=== PATIENT | male | born 1970 | race Caucasian/White ===

== ENCOUNTER 2017-01-10 10:55 | Inpatient (IN) | payer MEDICAID ==
[~2017-01-10] VITALS: Ht 182.9 cm; Wt 85.7 kg
[2017-01-10 12:20] LABS: BASOPHILS 0.2 % (0-2); EOSINOPHILS 0.2 % (0-7); HEMATOCRIT 42.9 % (42.0-54.0); HEMOGLOBIN 15.6 g/dL (13.5-17.5); IMMATURE GRANULOCYTES 0.2 % (0-5); LYMPHOCYTES 9.3 % (15-50); MCH 32.7 pg (26.0-34.0); MCHC 36.4 g/dL (31.0-37.0); MCV 89.9 fL (80.0-100.0); MEAN PLATELET VOLUME 9.8 fL (7.4-10.4); MONOCYTES 8.6 % (2-11); NEUTROPHILS 81.5 % (40-80); PLATELET COUNT 109 10x3/uL (130-400); RBC 4.77 10x6/uL (4.20-6.10); WBC 5.7 10x3/uL (4.8-10.8)
[2017-01-10 12:39] LABS: ALBUMIN 4.2 g/dL (3.4-5.0); ALKALINE PHOSPHATASE 87 U/L (46-116); ALT (SGPT) 119 U/L (10-68); CALC OSMOLALITY 262 mosm/kg (275-300); CALCIUM 9.2 mg/dL (8.5-10.1); CARBON DIOXIDE 27.8 mmol/L (21.0-32.0); CHLORIDE - SERUM 96 mmol/L (98-107); CREATININE - SERUM 0.8 mg/dL (0.6-1.3); GLUCOSE 94 mg/dL (74-106); PROTEIN - SERUM 7.5 g/dL (6.4-8.2); SODIUM 133 mmol/L (136-145); UREA NITROGEN 5 mg/dL (7-18); eGFR NON AFRICAN AMERICAN > 90 mL/min (90-120)
[2017-01-10 12:46] LABS: THYROID STIMULATING HORMONE 2.5 uIU/mL (0.36-3.74)
[2017-01-10 12:58] LABS: CREATINE KINASE 283 UL (21-232); MAGNESIUM - SERUM 1.8 mg/dL (1.8-2.4); PRO BNP 729 pg/mL (0-125); TROPONIN-I < 0.017 ng/mL (0.000-0.060)
[2017-01-10 16:21] LABS: CHOL - HDL RATIO 1.5 ratio (2.3-4.9); LDL-HDL RATIO 0.5 ratio (1.5-3.5)
[2017-01-10 19:00] VITALS: BP 136/77
--- NOTE | 2017-01-10 19:47 | NUR ---
RECIEVED TO ROOM 2120 FORM ER VIA WC. PT A&O. PIV X2 TO RIGHT ARM, CARDIZEM DRIP INFUSING AT 15 CC/HR. PLACED PT ON TELEMETRY, 86 CONTOL-AIFB PER MT. VITALS STABLE. PT CURRENTLY DENIES PAIN OR NEEDS. FRESH ICE WATER TAKEN TO ROOM. FAMILY AT BED SIDE, BED LOW, CL IN REACH.
[2017-01-10] MEDS ORDERED: TRAZODONE HCL50 MG PO (19:51)
[2017-01-10] MEDS ORDERED: BAYER CHEWABLE81 MG PO (19:52)
[2017-01-10] MEDS ORDERED: CHANTIX 1 MG TAB1 MG PO (20:04)
[2017-01-11] VITALS: BP 112/77
--- NOTE | 2017-01-11 00:36 | NUR ---
RESTING WITH EYES CLOSED, RESPERATIONS EVEN, NO S/S DISTRESS NOTED.
[2017-01-11 01:53] VITALS: Ht 182.9 cm; Wt 85.7 kg
[2017-01-11 04:00] VITALS: BP 102/71
--- NOTE | 2017-01-11 04:48 | NUR ---
ANSWERED CL, FRESH ICE WATER GIVEN AT PT REQUEST.
[2017-01-11 06:05] LABS: HEMATOCRIT 42.6 % (42.0-54.0); HEMOGLOBIN 14.8 g/dL (13.5-17.5); MCHC 34.7 g/dL (31.0-37.0); MEAN PLATELET VOLUME 10.4 fL (7.4-10.4); PLATELET COUNT 106 10x3/uL (130-400); RBC 4.63 10x6/uL (4.20-6.10); RDW 13.8 % (11.5-14.5)
[2017-01-11 06:16] LABS: WBC 2.6 10x3/uL (4.8-10.8)
[2017-01-11 06:40] LABS: ALBUMIN 3.7 g/dL (3.4-5.0); ALKALINE PHOSPHATASE 77 U/L (46-116); ALT (SGPT) 100 U/L (10-68); CALCIUM 8.6 mg/dL (8.5-10.1); CHLORIDE - SERUM 105 mmol/L (98-107); CREATININE - SERUM 0.9 mg/dL (0.6-1.3); GLUCOSE 95 mg/dL (74-106); POTASSIUM - SERUM 4.1 mmol/L (3.5-5.1); SODIUM 141 mmol/L (136-145); eGFR NON AFRICAN AMERICAN > 90 mL/min (90-120)
[2017-01-11 06:46] LABS: CALC OSMOLALITY 278 mosm/kg (275-300); UREA NITROGEN 7 mg/dL (7-18)
[2017-01-11 07:23] LABS: EOSINOPHILS 1 % (0-7); LYMPHOCYTES 40 % (15-50); MONOCYTES 7 % (2-11); NEUTROPHILS 50 % (40-80); PLATELET ESTIMATE DECREASED
--- NOTE | 2017-01-11 07:43 | NUR ---
ASSESSMENT DONE. DENIES NEEDS.
[2017-01-11 08:00] VITALS: BP 127/78
--- NOTE | 2017-01-11 10:06 | NUR ---
RESTS IN BED WITH CALL LIGHT IN REACH. IV PATENT. ROGERS NEEDS AT THIS TIME. WILL MONITOR.
[2017-01-11 12:00] VITALS: BP 106/64
[2017-01-11 16:00] VITALS: BP 105/73
--- NOTE | 2017-01-11 17:36 | NUR ---
WITHOUT CHANGES OR DIATRESS NOTED AT THIS TIME. DENIES NEEDS.
[2017-01-11 20:00] VITALS: BP 95/68
--- NOTE | 2017-01-12 01:43 | NUR ---
RESTING WITH EYES CLOSED, RESPERATIONS EVEN, NO S/S DISTRESS NOTED.
[2017-01-12 04:00] VITALS: BP 101/92
[2017-01-12 05:18] LABS: BASOPHILS 0.3 % (0-2); EOSINOPHILS 1.4 % (0-7); HEMOGLOBIN 12.9 g/dL (13.5-17.5); MCH 31.7 pg (26.0-34.0); MCHC 33.9 g/dL (31.0-37.0); MCV 93.4 fL (80.0-100.0); MEAN PLATELET VOLUME 11.3 fL (7.4-10.4); MONOCYTES 7.8 % (2-11); NEUTROPHILS 53.5 % (40-80); PLATELET COUNT 106 10x3/uL (130-400); RBC 4.07 10x6/uL (4.20-6.10); RDW 14.3 % (11.5-14.5)
[2017-01-12 05:25] LABS: WBC 3.7 10x3/uL (4.8-10.8)
[2017-01-12 05:41] LABS: ALBUMIN 3.1 g/dL (3.4-5.0); ALKALINE PHOSPHATASE 74 U/L (46-116); BILIRUBIN - TOTAL 0.56 mg/dL (0.2-1.3); CALC OSMOLALITY 271 mosm/kg (275-300); CALCIUM 8.1 mg/dL (8.5-10.1); CARBON DIOXIDE 22.2 mmol/L (21.0-32.0); CHLORIDE - SERUM 104 mmol/L (98-107); CREATININE - SERUM 0.8 mg/dL (0.6-1.3); GLUCOSE 97 mg/dL (74-106); POTASSIUM - SERUM 4.1 mmol/L (3.5-5.1); PROTEIN - SERUM 6.2 g/dL (6.4-8.2); SODIUM 137 mmol/L (136-145); UREA NITROGEN 8 mg/dL (7-18); eGFR NON AFRICAN AMERICAN > 90 mL/min (90-120)
[2017-01-12 05:46] LABS: ALT (SGPT) 245 U/L (10-68)
[2017-01-12 07:25] LABS: PHOSPHOROUS 4.4 mg/dL (2.5-4.9)
--- NOTE | 2017-01-12 07:29 | NUR ---
PT SITTING UP IN BED WATCHING TV DENIES ANY NEEDS WILL CONT TO MONITOR
[2017-01-12 08:29] VITALS: BP 96/64
[2017-01-12 11:35] VITALS: BP 97/65
[2017-01-12 11:57] LABS: UDS - AMPHET NEGATIVE QUAL (NEGATIVE); UDS - BARB NEGATIVE QUAL (NEGATIVE); UDS - BENZO NEGATIVE QUAL (NEGATIVE); UDS - COCAINE NEGATIVE QUAL (NEGATIVE); UDS - METH NEGATIVE QUAL (NEGATIVE); UDS - OPIATE NEGATIVE QUAL (NEGATIVE); UDS - PCP NEGATIVE QUAL (NEGATIVE); UDS - THC NEGATIVE QUAL (NEGATIVE)
--- NOTE | 2017-01-12 12:05 | NUR ---
PT IS CON AFIB ON TELE. RATE IS DROPPING TO 48-[address] RUCKER TO LET HIM KNOW.
--- NOTE | 2017-01-12 12:09 | NUR ---
DR RUCKER SAID TO TURN PT CARDIZEM DRIP OFF, DONE. CALL CENTER SUPPORT REPRESENTATIVE CHANG NOTIFIED.
[2017-01-12 14:36] LABS: CKMB 0.9 U/L (0.0-3.6); CREATINE KINASE 56 UL (21-232); TROPONIN-I 0.037 ng/mL (0.000-0.060)
--- NOTE | 2017-01-12 15:30 | NUR ---
PT REQUEST FOR PIVS TO BE TAKEN OUT. PT IS GOING TO BE GOING HOME. DC BOTH PIV WITH CATH TIPS INTACT.
[2017-01-12] MEDS ORDERED: BETAPACE 80 MG80 MG PO (15:37)
[2017-01-12] MEDS ORDERED: ELIQUIS5 MG PO (15:38)
--- NOTE | 2017-01-12 17:03 | NUR ---
WENT OVER DC PAPERWORK WITH PT PT VERBALIZES UNDERSTANDING. DC TELE AND RETURNED TO INTERNAL CONTROL CONSULTANT. PT WAS WHEELED OUT TO FRONT ENTRANCE VIA COMPO CONVEYOR OPERATOR. MOTHER HERE TO DRIVE HIM HOME.
--- NOTE | 2017-01-14 13:52 | EC ---
PATIENT:MERCEDES URIOSTEGUI DATE OF SERVICE: 01/10/17 SEX: M MEDICAL RECORD: [id number] DATE OF : 68 LOCATION:D. D.212 AGE OF PATIENT: 47 ADMISSION DATE: 01/12/17 REFERRING PHYSICIAN: INTERPRETING PHYSICIAN: CATHIE MG MD ECHOCARDIOGRAM REPORT ECHO CHARGES 4 ECHO COMPLETE CLINICAL DIAGNOSIS: AAFIB/CHEST PAIN ECHOCARDIOGRAPHIC MEASUREMENTS (adult normal given) AC root (d.<3.7cm) 2.9 cm LV Septum d (<1.2 cm> 1.2 cm Valve Excursion 1.3 cm LV Septum (systole) 1.6 cm Left Atria (s.<4.0cm> 2.6 cm LVPW d(<1.2cm) 1.2 cm RV (d.<2.3cm) 3.5 cm LVPW (sytole) 1.6 cm LV diastole(<5.6CM) 4.6 cm MV E-F(>70mm/sec) cm LV systole 3.1 cm LVOT Diameter 1.9 cm MV exc.(>10mm) 2.0 cm Est.ejection fraction (50-75%) % Pericardial Effusion N DOPPLER: LVIT cm/sec A 29.0 cm/sec E 84.0 cm/sec LA cm/sec RVSP 30 mmHg LVOT 82 cm/sec AOP1/2T m/s Asc. Ao 122 cm/sec RVOT 51 cm/sec RA cm/sec PA 79 cm/sec AV Gradient Peak 5.99 mmHg AV Mean 3.45 mmHg AV Area 1.9 cm MV Gradient Peak 4.97 mmHg MV Mean 1.54 mmHg MV Area cm COMMENTS: Front End Mechanic: Nanci LLOYD Gun Stock Maker: 1 Dr. Mg TAPE# PACS DATE OF SERVICE: 01/11/2017 Echocardiogram FINDINGS: 1. Left ventricular chamber size is within normal limits. Left ventricular systolic function is normal. Overall ejection fraction estimated at 55%. 2. Left atrium, right atrium and right ventricular chamber sizes are within normal limits. 3. Valvular structures have normal structure and motion. ECHOCARDIOGRAM REPORT [id number] MERCEDES URIOSTEGUI 4. Doppler interrogation reveals only mild mitral regurgitation, mild tricuspid regurgitation, no other valvular insufficiency or stenosis. 5. No evidence of pericardial effusion or left ventricular thrombus. 6. The patient is in atrial fibrillation during the study. TRANSINT:[id number] Voice Confirmation ID: [id number] DOCUMENT ID: [id number] CATHIE MG MD at 1352 CC: [id number] DICTATION DATE: 01/11/17 1240 FACILITY TECHNICIAN: 01/11/171914 DIS IN 01/12/17 [facility] [address] [id number]
== END 2017-01-12 17:05 | disposition home or self-care (01) | DRG 309 ==
LOC: D.ER 10:55 → D.M2 17:58 → OBSVTIME 17:58 → D.M2 01-12 09:42
PROVIDERS: Emergency Medicine; ADMIT Family Medicine
DX: I48.91 Unspecified atrial fibrillation (principal); F17.203 Nicotine dependence unspecified, with withdrawal; F41.9 Anxiety disorder, unspecified; R74.8 Abnormal levels of other serum enzymes

== ENCOUNTER 2017-02-08 11:18 | Outpatient (CLI) | payer MEDICAID ==
[2017-01-11 01:53] VITALS: BMI 25.8
[~2017-02-08 11:18] MED LIST: BAYER CHEWABLE81 MG PO; BETAPACE 80 MG80 MG PO; CHANTIX 1 MG TAB1 MG PO; ELIQUIS5 MG PO; TRAZODONE HCL50 MG PO
[2017-02-08] MEDS ORDERED: CELEXA20 MG PO (12:21)
[2017-02-08] MEDS ORDERED: LOPRESSOR25 MG PO (12:22)
[2017-02-08] MEDS ORDERED: BETAPACE 80 MG80 MG PO (12:22)
--- NOTE | 2017-02-08 12:25 | NUR ---
1225 EKG SHOWING NSR, RATE OF 70. COPY OF EKG TO INSTRUCTIONAL TECHNOLOGY COORDINATOR, WILL WAIT FOR DR RUCKER TO ASSESS.
--- NOTE | 2017-02-08 13:40 | NUR ---
1325 DR RUCKER HERE ROUNDING ON PATIENT. EKG REVIEWED, PROCEDURE CANCELLED, PT TO FOLLOW UP IN OFFICE IN 2 WEEKS AND EARLIER IF ANY RECURRING SYMPTOMS. CONTINUE ALL HOME MEDICATIONS. PT DRESSING FOR DC. 1335 REVIEWED DC INSTRUCTIONS WITH PT WHO VERBALIZES UNDERSTANDING. PT AMBULATORY UPON DC TO HOME.
== END 2017-02-08 13:35 | disposition home or self-care (01) ==
LOC: D.CATH 11:18
PROVIDERS: Internal Medicine Cardiovascular Disease
DX: I48.91 Unspecified atrial fibrillation (principal); Z53.9 Procedure and treatment not carried out, unspecified reason; Z01.812 Encounter for preprocedural laboratory examination; Z01.810 Encounter for preprocedural cardiovascular examination

== ENCOUNTER → 2019-11-08 12:44 | Outpatient (CLI) | payer BC ==
[2017-01-11 01:53] VITALS: BMI 25.8
[~2019-11-08 12:44] MED LIST changes: +CELEXA20 MG PO; +LOPRESSOR25 MG PO
== END | disposition home or self-care (01) ==
LOC: D.HCCECHO 12:44
PROVIDERS: ATTEND Internal Medicine Cardiovascular Disease
DX: I48.91 Unspecified atrial fibrillation (principal)